=== PATIENT | male | born 1980 | race Two or more races ===

== ENCOUNTER 2023-09-11 10:53 | Emergency (ER) | payer OTHER ==
[~2023-09-11] VITALS: Ht 165.1 cm; Wt 77.1 kg
[2023-09-11] MEDS ORDERED: KETOROLAC TROMETHAMINE 30 MG VIAL IM STA (14:29)
[2023-09-11] MEDS ORDERED: ORPHENADRINE CITRATE 30 MG/ML AMPUL IM STA (14:29)
== END 2023-09-11 16:26 | disposition home or self-care (01) ==
LOC: ER 10:53
DX: M54.89 Other dorsalgia (principal)